=== PATIENT | female | born 1975 | race Caucasian/White ===

== ENCOUNTER 2024-08-20 11:05 | Outpatient (AMB) | payer MEDICARE, MEDICAID, SELFPAY ==
--- NOTE | 2024-08-20 11:10 | A.OFFVIS_ITS ---
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 She initially sustained a right hip injury last September that revealed labrum tears upon MRI investigation at [facility]. The most recent aggravation was a fall at her drive way at home about 3 months ago, which has been correlated with continuous, intense pain described as stabbing and pulling, with radiation to the midline buttock and sacrum extending nursing home down posterior thighs. The back pain does not extend below the knee level and has led to considerable interference with functional daily movements, especially sitting and bending and sleep. Her medical history is notable for ankylosing spondylitis, for which she receives ongoing treatment, differentiating this current pain episode from her chronic illness. A history of L2 and L4 compression fracture and degenerative changes was noted, with recent imaging confirming absence of significant stenosis or nerve root impingements. The patient?s pain has persisted despite lack of immediate remedial interventions; exacerbated symptoms are aligned with periods of immobility, transitions, and specific movements. The patient has faced insurance hurdles sincerely limiting follow-up diagnostics and has restricted herself from NSAID use due to ulcerative colitis and liver enzyme elevation, posing further challenges in effective pain management and lifestyle maintenance, indicated by a delayed commencement of physical therapy and disrupted daily routines and sleep. - Onset and Timing: Chronic, persistent since last September with recent exacerbation three months ago. - Quality and Character: Stabbing, tugging, pulling, tight, squeezing, tearing, dull, aching, heavy. - Primary Location: Lower back into the midline buttock. - Areas of Radiation: Extends nursing home down the leg, not beyond knee level. - Exacerbating Factors: Sitting, transitioning from sitting to standing, bending forward. - Relieving Factors: Temporary relief from hip cortisone shots. - Interference with Function: Difficulty standing, impaired sleep, limitations on movement, significant functional daily impairments. - Affect: The patient's mood and activities are significantly impacted by chronic pain, which affects sleep and quality of life. - Analgesia: Currently on Remicade for ankylosing spondylitis yet perceives current pain as unrelated. No oral analgesics noted due to ulcerative colitis and liver condition. - Adverse Effects: Cannot take ibuprofen due to ulcerative colitis. - Activities of Daily Living: Severely impacted, with sitting, bending, and daily functional tasks complicated by chronic pain. - Aberrant Drug-Related Behaviors: None reported; the patient avoids pain medications due to ulcerative colitis. Oswestry Low Back Pain Disability Score=36 [facility] Medical History (Updated 08/20/24 @ 14:21 by MARK Valle) Labral tear of right hip joint Ulcerative colitis SURINDER (generalized anxiety disorder) Hyperlipidemia PTSD (post-traumatic stress disorder) Ankylosing spondylitis ADHD Lumbar radiculopathy Lumbar compression fracture Lumbar degenerative disc disease Surgical History (Updated 08/20/24 @ 11:43 by Barbara Mensah) History of surgery of uterus H/O shoulder surgery H/O knee surgery H/O breast augmentation Review of Systems Const Details: - Musculoskeletal: Reports chronic back pain exacerbated by sitting or bending; denies peripheral numbness or tingling except dull hip pain on lateral side bilaterally. - Gastrointestinal: Denies alcohol consumption; reports ulcerative colitis and newly recognized liver disease. - General: Claims overall life quality diminished due to persistent pain. All systems reviewed & are unremarkable except as noted in HPI and below Physical Exam Vital Signs: Last Vital Signs Pulse Ox 99 08/20/24 11:16 Oxygen Delivery Method Room Air 08/20/24 11:16 BMI result Body Mass Index 27.1 General: Appears afebrile. Acute distress due to lower back and sacral pain. Alert and oriented. Mood and affect appropriate. Follows and participates in conversation appropriately. Respiratory effort is unlabored. No cough. Able to transition from sit to stand unassisted. Ambulates with bilaterally normal heel strike and toe off. General: Yes no CVA tenderness Back/Spine/Pelvis Other: Patient is able to walk and stand on heels and tip toes with some difficulties due to pain otherwise demonstrating good motor tone. Mildly antalgic gait, no limping. Lumbar ROM are limited due to pain, flexion and extension and bending reproduce moderate to severe pain. Patient is frequently adjusting her positioning during today's visit and tries to offload pressure from sitting on hard surfaces. Sitting over 1-2 min increases her pain. Demonstrates 5/5 left and 4/5 right strength of quadriceps bilaterally as well as flexion/dorsiflexion of bilateral feet against resistance. 2+ pedal pulses bilaterally. Straight leg rise with dorsiflexion negative bilaterally. +2 patellar and achilles reflexes bilaterally. Facet loading test positive bilaterally. Leticia sign, Demetrius?s, Gaenslen, Pelvic compression and Stinchfield tests are positive bilaterally. Mild to moderate right groin pain with I/E hip rotations. Significant paraspinals tenderness lower back and sacral areas. Valsalva maneuver negative. Back: no CVA tenderness Cervical Spine: cervical ROM normal, cervical muscular tenderness and No Cervical spine tenderness Thoracic/Lumbar Spine: thoracic and lumbar spine normal to inspection, No Thoracic/lumbar spine scar(s), Lasegue's sign negative, straight leg raise negative bilaterally, pain with thoraco-lumbar ROM, paraspinal muscle tenderness, thoraco-lumbar ROM limited, No thoracic spinal tenderness and lumbar spinal tenderness (L4-S1) Pelvis: buttock tenderness bilaterally and no sciatic notch tenderness Sacroiliac joints: bilaterally tender to palpation Sacrum: no ecchymosis, no swelling and tenderness midline and bilaterally Coccyx: no tenderness Results Reviewed Results Reviewed: Assessment & Plan Assessment & Plan (1) Lumbar degenerative disc disease: Code(s): M51.369 - Other intervertebral disc degeneration, lumbar region without mention of lumbar back pain or lower extremity pain Category: Medical (2) Coccydynia: Code(s): M53.3 - Sacrococcygeal disorders, not elsewhere classified Category: Medical (3) History of recent fall: Code(s): Z91.81 - History of falling Category: Medical (4) Sacroiliac joint pain: Code(s): M53.3 - Sacrococcygeal disorders, not elsewhere classified Category: Medical (5) Low back pain: Code(s): M54.50 - Low back pain, unspecified Category: Medical (6) Tarlov cyst: Comment: Right sacrum per lumbar MRI 08/10/24 at [facility] [facility] Code(s): G96.191 - Perineural cyst Category: Medical (7) Lumbosacral spondylosis: Code(s): M47.817 - Spondylosis without myelopathy or radiculopathy, lumbosacral region Category: Medical Plan I plan to perform X-ray imaging of the pelvis, sacrum and coccyx to rule out any degenerative changes, fractures or dislocations secondary to her recent fall. We reviewed spine MRI reports from [facility] [place] [facility]. Given her history of compression fractures, we reviewed potential osteoporosis risks before any steroid interventions. Patient reports her density bone scan of last year was normal. Patient will begin physical therapy focused on her hip and lower back and adjusting any further movement techniques. If further diagnostics confirm conditions amenable to treatment, interventional options such as radiofrequency ablation and neuromodulation will be considered. All diagnostic findings will guide ongoing pain management strategies, balancing symptomatic relief with safety. All questions and concerns have been answered and patient agreed with the plan. Follow up for xray results and sooner as needed. Patient was informed and verbally consented to the use of an ambient scribe for clinic note documentation during this visit. Orders: Orders 2 XR pelvis min 3V Today M53.3 - Sacrococcygeal disorders, not elsewhere classified, Z91.81 - History of falling XR sacrum coccyx min 2V Today M53.3 - Sacrococcygeal disorders, not elsewhere classified Patient Instructions: I discussed the likelihood of mechanical low back pain influenced by recent physical injuries compounded by her ankylosing spondylitis and recent known history of right hip labral tear. Treatment options vary from physical therapy initiation to potential interventional procedures like diagnostic nerve blocks for potential neuromodulation or radiofrequency ablation if indicated by further imaging. It was emphasized that steroid injections would be cautiously considered given previous history of mild L2 and L4 compression fractures. I informed the patient of the inherent risks, benefits, and non-surgical alternatives considering her medical history. Agreement was given to commence with imaging studies, proceed robustly with therapeutic strategies, and engage in a discussion regarding future management steps based on further test outcomes. The necessity of a coordinated care pathway to facilitate insurance alignment and imaging accessibility was underscored. - Proceed to hospital imaging for pelvis, sacrum and coccyx X-rays today. - Start physical therapy next week as planned focusing on guided exercises specific to hip and back stabilization. - Continue monitoring symptoms and maintain a record for follow-up. - Await imaging results to discuss next steps in treatment. - Stay active within limits and avoid exacerbating movements. - Consult medical release for further hip imaging and reports from [facility]. Coding Level of Care Code New Pt Level 4 (89856) Diagnoses Lumbar degenerative disc disease M51.369 Coccydynia M53.3 History of recent fall Z91.81 Sacroiliac joint pain M53.3 Low back pain M54.50 Tarlov cyst G96.191 Lumbosacral spondylosis M47.817
[2024-08-20 11:16] VITALS: O2SAT 99; BMI 27.1
--- OUTSIDE RECORDS SUMMARY | 2024-08-20 13:25 | XMS_ITS | Clinical Summary ---
Author Organization Patient Business Ser [facility] Address [address] [place] [address] Care Team Providers Care Resident Services Director Name Role Phone Liv Villalba MD Primary Care Provider [phone] Allergies Active Allergy Reactions Criticality Noted Date Comments Avocado 08/03/2021 Lidocaine 11/16/2020 Other Reaction(s): OTHER Metronidazole 08/03/2021 Other Reaction(s): Rash/Dermatitis Oxycodone Hallucinations Medium 06/01/2021 Oxycodone-Acetaminophen 08/03/2021 Medications amphetamine-de xtroamphetamin e XR (ADDERALL XR) 20 mg 24 hr capsule Take 20 mg by mouth every morning. 2 tablets in the morning Active spironolactone (ALDACTONE) 100 mg tablet Take 1 Tab by mouth daily 12/01/19 18 Active baclofen (LIORESAL) 10 mg tablet Take 1 tablet (10 mg total) by mouth 3 (three) times a day if needed. 07/03/19 25 Active clonazePAM (KlonoPIN) 1 mg tablet Take 1.5 mg by mouth 1 (one) time each day. Max Daily Amount: 1.5 mg 07/25/19 25 Active Rinvoq 45 mg tablet extended release 24 hr Take 1 tablet by mouth 1 (one) time each day. 08/11/19 25 Active cyclobenzaprin e HCl (FLEXERIL ORAL) Take 3 tablets by mouth as needed. Taking 2 tablets weekly 025 Discontinued infliximab (REMICADE IV) Inject 700 mg into the vein. Every 4 weeks 025 Discontinued LORazepam (ATIVAN) 1 mg tablet Take 1 mg by mouth at bedtime. 2 tablets nightly to sleep 025 Discontinued omeprazole (PriLOSEC) [address] capsule Take 10 mg by mouth 2 times daily. 025 Discontinued chlorhexidine (HIBICLENS) 4 % external liquid Preop surgical skin wash. Please follow provided instructions from doctor. 06/01/19 025 Discontinued Active Problems Problem Noted Date Diagnosed Date Abnormal uterine bleeding 06/06/2021 Dysplasia of cervix, high grade JESSICA 2 06/06/2021 Encounters Date Type Department Care Team Description 08/14/2024 1:30 PM EDT Office Visit [facility] Hematology Oncology [address] [place] [address] Elissa Post MD Coagulopathy (CMS/HCC) (Primary Dx); Purpura (CMS/HCC) 08/12/2024 Telephone Gastroenterology - [place] [address] [facility] [address] [facility] [address] [place] [address] Destiny Li MD APPOINTMENT from Last 3 Months Surgical History Surgery Date Site/Laterality Comments OTHER SURGICAL HISTORY 02/26/2021 PROCEDURE: FL CONIZATION CERVIX W/WO D&C RPR KNIFE/LASER; COMMENT: CKC of cervix. OTHER SURGICAL HISTORY 09/08/2020 PROCEDURE: FL INSERTION INTRAUTERINE DEVICE IUD; COMMENT: Hysteroscopy, IUD insertion OTHER SURGICAL HISTORY 06/21/2021 PROCEDURE: FL LAPS TOTAL HYSTERECT 250 GM/< W/RMVL TUBE/OVARY; COMMENT: Robot assisted total laparoscopic hysterectomy, bilateral salpingectomy, lysis of adhesions. Medical History Medical History Date Comments Ulcerative colitis DX:Ulcerative colitis ([facility]); COMMENT: Remicade every 4 weeks GERD (gastroesophageal reflux disease) DX:GERD (gastroesophageal reflux disease) Ankylosing spondylitis DX:Ankylo sing spondylitis ([facility]); COMMENT: Dr. Floyd on Imaging and HLA B27 positve. ADHD (attention deficit hype ractivity disorder) DX:ADHD (attention deficit h yperactivity disorder) Anxiety and depression DX:Anxiet y and depression Thyroid nodule DX:Thyroid nodul e Pulmonary nodule DX:Pulmonary no dule; COMMENT: CT Chest 09/24/20: Stable small pulmonary nodule at the right lung base, which requires no further follow-up per Fleischner recommendations. Family History Medical History Relation Name Comments Prostate cancer Father Leukemia Mother Breast cancer Paternal Grandmother Relation Name Status Comments Father Mother Paternal Grandmother Social History Tobacco Use Types Packs/Day Years Used Date Smoking Tobacco: Never Smokeless Tobacco: Never Alcohol Use Standard Drinks/Week Comments No 0 (1 standard drink = 0.6 oz pur e alcohol) Comments Unknown Sex and Gender Information Value Date Recorded Sex Assigned at Female 07/08/2024 3:37 PM EST Legal Sex Female 1:38 AM EST Gender Identity Female 07/08/2024 3:37 PM EST Sexual Orientation Not on file Obstetrics History Last Filed Vital Signs Vital Sign Reading Time Taken Comments Blood Pressure 126/89 08/14/2024 1:42 PM EDT Pulse 120 08/03/2021 2:21 PM EDT Temperature 37.2 ??C (99 ??F) 08/14/2024 1:42 PM EDT Respiratory Rate - - Oxygen Saturation 100% 08/14/2024 1:42 PM EDT Inhaled Oxygen Concentration - - Weight 69.4 kg (153 lb) 08/14/2024 1:42 PM EDT Height 157.5 cm (5' 2 ) 08/14/2024 1:42 PM EDT Body Mass Index 27.98 08/14/2024 1:42 PM EDT Plan of Treatment Upcoming Encounters Date Type Department Care Team (Late st Contact Info) Description 09/02/2024 1:40 PM EDT Consult Gastroenterology - [place] [address] [facility] [address] [facility] [address] [place] [phone] Kevyn Luevano, PA [address] [facility] [address] [place] [address] 09/11/2024 1:15 PM EDT Office Visit [facility] Hematology Oncology [address] [place] [phone] Elissa Post MD [address] [place] [address] Health Maintenance Due Date Last Done Comments Breast Cancer Screening 1974 COVID-19 Vaccine (#1) 1979 Hepatitis B Vaccines (1 of 3 - 19+ 3-dose series) 1993 Cervical Cancer Screening: Pap Smear 1995 Colorectal Cancer Screening: Colonoscopy 07/26/2021 Depression Screening 07/26/2021 HIV Screening 07/26/2021 Medicare Annual Wellness Visit 07/26/2021 Social Influencers of Health Screening 07/26/2021 Pneumococcal Vaccine: 50+ Years (1 of 1 - PCV) 02/11/2024 Zoster Vaccines (1 of 2) 02/11/2024 Influenza Vaccine (Season Ended) 2025 04/12/2017, 03/04/2015, 02/19/2015, Additional history exists DTaP,Tdap,and Td Vaccines (4 - Td or Tdap) 10/06/2033 10/07/2023, 12/18/2022, 11/19/2013 Hepatitis C Screening Completed 11/28/2023 HIB Vaccines Aged Out No longer eligi ble based on patient's age to complete this topic HPV Vaccines Aged Out No longer eligi ble based on patient's age to complete this topic Hepatitis A Vaccines Aged Out No long er eligible based on patient's age to complete this topic IPV Vaccines Aged Out No longer eligi ble based on patient's age to complete this topic MMR Vaccines Aged Out No longer eligi ble based on patient's age to complete this topic Meningococcal ACWY Vaccine Aged Out N o longer eligible based on patient's age to complete this topic Meningococcal B Vacine Aged Out No lo nger eligible based on patient's age to complete this topic Pneumococcal Vaccine: Pediatrics (0 to 5 Years) and At-Risk Patients (6 to 64 Years) Aged Out No longer eligible based on patient's age to complete this topic RSV Immunization Patients Under 20 months Aged Out No longer eligible based on patient's age to complete this topic Varicella Vaccines Aged Out No longer eligible based on patient's age to complete this topic Procedures Procedure Name Priority Date/Time Associated Diagnosis Comments CBC WITH AUTO DIFFERENTIAL Routine 08/14/2024 2:15 PM EDT Purpura (CMS/HCC) ACTIVATED PARTIAL THROMBOPLASTIN TIME Routine 08/14/2024 2:15 PM EDT Purpura (CMS/HCC) PROTHROMBIN TIME WITH INR Routine 08/14/2024 2:15 PM EDT Purpura (CMS/HCC) HEPATIC FUNCTION PANEL Routine 2:15 PM EDT Purpura (CMS/HCC) CBC AND DIFFERENTIAL Routine 08/14/2024 2:15 PM EDT Purpura (CMS/HCC) from Last 3 Months Results * (ABNORMAL) CBC auto differential (08/14/2024 2:15 PM EDT) Pathologist [facility] WBC 5.9 4.8 - 10.8 K/mcL LAB HEMETOLOGY METHOD 08/14/2024 4:50 PM EDT [facility] RBC 4.60 3.80 - 4.80 M/mcL LAB HEMETOLOGY METHOD 08/14/2024 4:50 PM EDT [facility] Hemoglobin 13.8 11.5 - 16.0 g/dL LAB HEMETOLOGY METHOD 08/14/2024 4:50 PM EDT [facility] Hematocrit 43.0 35.0 - 47.0 % LAB HEMETOLOGY METHOD 08/14/2024 4:50 PM EDT [facility] MCV 93.5 79.0 - 98.0 FL LAB HEMETOLOGY METHOD 08/14/2024 4:50 PM EDT [facility] MCH 30.0 27.0 - 32.0 pcg LAB HEMETOLOGY METHOD 08/14/2024 4:50 PM EDT [facility] MCHC 32.1 32.0 - 37.0 g/dL LAB HEMETOLOGY METHOD 08/14/2024 4:50 PM EDT [facility] RDW 13.6 11.0 - 15.0 % LAB HEMETOLOGY METHOD 08/14/2024 4:50 PM EDT [facility] Platelets 636(H) 130 - 400 K/mcL LAB HEMETOLOGY METHOD 08/14/2024 4:50 PM EDT [facility] MPV 8.5 7.0 - 11.0 FL LAB HEMETOLOGY METHOD 08/14/2024 4:50 PM EDT [facility] NRBC 0.0 <1.0 % LAB HEMETOLOGY METHOD 08/14/2024 4:50 PM EDT [facility] NRBC Absolute 0.00 <0.10 K/mcL LAB HEMETOLOGY METHOD 08/14/2024 4:50 PM EDT [facility] Neutrophils Relative 43.8 % LAB HEMETOLOGY METHOD 08/14/2024 4:50 PM EDT [facility] Lymphocytes Relative 44.2 % LAB HEMETOLOGY METHOD 08/14/2024 4:50 PM EDT [facility] Monocytes Relative 8.9 % LAB HEMETOLOGY METHOD 08/14/2024 4:50 PM EDT [facility] Eosinophils Relative 0.3 % LAB HEMETOLOGY METHOD 08/14/2024 4:50 PM EDT [facility] Basophils Relative 0.9 % LAB HEMETOLOGY METHOD 08/14/2024 4:50 PM EDT [facility] Immature Granulocytes Relative 1.9 % LAB HEMETOLOGY METHOD 08/14/2024 4:50 PM EDT [facility] Neutrophils Absolute 2.57 1.50 - 7.00 K/mcL LAB HEMETOLOGY METHOD 08/14/2024 4:50 PM EDT [facility] Lymphocytes Absolute 2.59 1.00 - 5.00 K/mcL LAB HEMETOLOGY METHOD 08/14/2024 4:50 PM EDT [facility] Monocytes Absolute 0.52 0.20 - 1.00 K/mcL LAB HEMETOLOGY METHOD 08/14/2024 4:50 PM EDT [facility] Eosinophils Absolute 0.02 0.00 - 0.50 K/mcL LAB HEMETOLOGY METHOD 08/14/2024 4:50 PM EDT [facility] Basophils Absolute 0.05 0.00 - 0.20 K/[facility] LAB HEMETOLOGY METHOD 08/14/2024 4:50 PM EDT [facility] Immature Granulocytes Absolute 0.11(H) 0.00 - 0.03 K/[facility] LAB HEMETOLOGY METHOD 08/14/2024 4:50 PM EDT [facility] Blood Venous blood specimen / Unknown Venipuncture / Unknown 08/14/2024 2:15 PM EDT 08/14/2024 4:42 PM EDT Elissa Post MD LAB BLOOD ORDERABLES Final R esult Performing Organization Address City/[facility]/ZIP Co de Phone Number [facility] [address] [place] [address], [place] [phone] * Activated partial thromboplastin time (08/14/2024 2:15 PM EDT) aPTT 29.4 24.1 - 39.3 sec LAB COAGULATION METHOD 08/14/2024 4:55 PM EDT [facility] Blood Venous blood specimen / Unknown Venipuncture / Unknown 08/14/2024 2:15 PM EDT 08/14/2024 4:41 PM EDT Elissa Post MD LAB BLOOD ORDERABLES Final R esult [facility] [address] [place] [address], [place] [phone] * Prothrombin time with INR (08/14/2024 2:15 PM EDT) Protime 11.2 10.6 - 13.9 sec LAB COAGULATION METHOD 08/14/2024 4:55 PM EDT [facility] INR 0.9 LAB COAGULATION METHOD 08/14/2024 4:55 PM EDT [facility] Blood Venous blood specimen / Unknown Venipuncture / Unknown 08/14/2024 2:15 PM EDT 08/14/2024 4:41 PM EDT Elissa Post MD LAB BLOOD ORDERABLES Final R esult [facility] [address] [place] [address], [place] [phone] * (ABNORMAL) Hepatic function panel (08/14/2024 2:15 PM EDT) Total Protein 8.2(H) 6.0 - 8.0 g/dL LAB CHEMISTRY METHOD 08/14/2024 6:35 PM EDT [facility] Albumin 4.2 3.2 - 5.0 g/dL LAB CHEMISTRY METHOD 08/14/2024 6:35 PM EDT [facility] Total Bilirubin 0.5 0.0 - 1.4 mg/dL LAB CHEMISTRY METHOD 08/14/2024 6:35 PM T [facility] Bilirubin, Direct 0.1 0.0 - 0.3 mg/dL LAB CHEMISTRY METHOD 08/14/2024 6:35 PM EDT [facility] Bilirubin, Indirect 0.4 0.0 - 1.1 mg/dL LAB CHEMISTRY METHOD 08/14/2024 6:35 PM EDT [facility] ALT (SGPT) 79(H) 10 - 60 unit/L LAB CHEMISTRY METHOD 08/14/2024 6:35 PM EDT [facility] AST (SGOT) 85(H) 10 - 42 unit/L LAB CHEMISTRY METHOD 08/14/2024 6:35 PM EDT [facility] Alkaline Phosphatase 102 42 - 121 unit/L LAB CHEMISTRY METHOD 08/14/2024 6:35 PM EDT [facility] Blood Venous blood specimen / Unknown Venipuncture / Unknown 08/14/2024 2:15 PM EDT 08/14/2024 4:42 PM EDT Elissa Post MD LAB BLOOD ORDERABLES Final R esult [facility] [address] [place] [address], from Last 3 Months Insurance [employer] [place] - [place] [employer] Care Teams Resident Services Director Relationship Specialty Start Date End Date Liv Villalba MD [address] [facility] access [place] [address] PCP - General Internal Medicine 06/14/24
--- OUTSIDE RECORDS SUMMARY | 2024-08-20 13:25 | XMS_ITS | Encounter Summary ---
Author Organization [facility] Address [id number] [place] [id number] Care Team Providers Care Dance Costume Designer Name Role Phone Liv Villalba MD Primary Care Provider [phone] Reason for Visit * Reason Comments Consult * Consultation (Routine) - Closed Specialty Diagnoses / Procedures Referred By Contact Referred To Contact Hematology and Oncology Diagnoses Purpura (CMS/HCC) Ruddy Cooper PA [address] [place] [address] Phone: tel: fax: [facility] Hematology Oncology [address] [place] [phone] Phone: tel: fax: Referral ID Status Reason Start Date Expiration Date V isits Requested Visits Authorized [id number] Closed Specialty Services Required 07/09/2024 07/09/2025 1 1 Encounter Details Date Type Department Care Team (Late st Contact Info) Description 08/14/2024 1:30 PM EDT Office Visit [facility] Hematology Oncology [address] [place] [phone] Elissa Post MD [address] [place] [address] Coagulopathy (CMS/HCC) (Primary Dx); Purpura (CMS/HCC) Social History Tobacco Use Types Packs/Day Years [...] PM EST Sexual Orientation Not on file documented as of this encounter Last Filed Vital Signs Vital Sign [place] Time Taken Comments Blood Pressure 126/89 08/14/2024 1:42 PM EDT Pulse - - Temperature 37.2 ??C (99 ??F) 08/14/2024 1:42 PM EDT Respiratory Rate - - Oxygen Saturation 100% 08/14/2024 1:42 PM EDT Inhaled Oxygen Concentration - - Weight 69.4 kg (153 lb) 08/14/2024 1:42 PM EDT Height 157.5 cm (5' 2 ) 08/14/2024 1:42 PM EDT Body Mass Index 27.98 08/14/2024 1:42 PM EDT documented in this encounter Progress Notes * Elissa Post MD - 08/14/2024 1:30 PM EDT ONC CANCER INITIAL VISIT Dear Ruddy, Thank you very much for referring this patient for consultation. HPI: Patient is a 49-year-old female, who has multiple medical issues, has been on multiple prescription medication for a while, noticed increasing bruising and easy bleeding lately patient referred to me for further hematological evaluation. Patient apparently denies any nonsteroidal anti-infl ammatory drug use, patient also denies alcohol abuse but patient has abnormal liver function test and will be seeing a special needs librarian in next couple weeks. Patient denies any prior history any significant family history of bleeding disorder. Patient have to complete delivery, never needed RBC transfusion ROS: GENERAL: No anorexia, intentional weight loss, fever, chills, night sweats but get fatigue and tired easily HEENT occasional headache, no visual symptom NECK: No lumps, goiter, pain or significant neck swelling RESPIRATORY: No significant cough or shortness of breath CARDIOVASCULAR: No chest pressure GI: No significant abdominal discomfort, blood in stools or black stools MUSCULOSKELETAL: Has chronic arthritic pain especially the backache because of her rheumatological issues she had hysterectomy denies any symptoms HEMATOLOGY/LYMPHOLOGY lately she has been noticing easy bleeding and easy bruising Other Systems review is non contributory PAST MEDICAL HISTORY: GERD Asthma Anxiety disorder ADHD Hypertension Dyslipidemia Ankylosing spondylitis Asherman syndrome Headaches Anemia Ulcerative colitis Lung mass PAST SURGICAL HISTORY: Past Surgical History: Procedure Laterality Date OTHER SURGICAL HISTORY 02/26/2021 PROCEDURE: CT CONIZATION CERVIX W/WO D&C RPR KNIFE/LASER; COMMENT: CKC of cervix. OTHER SURGICAL HISTORY 09/08/2020 PROCEDURE: CT INSERTION INTRAUTERINE DEVICE IUD; COMMENT: Hysteroscopy, IUD insertion OTHER SURGICAL HISTORY 06/21/2021 PROCEDURE: CT LAPS TOTAL HYSTERECT 250 GM/< W/RMVL TUBE/OVARY; COMMENT: Robot assisted total laparoscopic hysterectomy, bilateral salpingectomy, lysis of adhesions. SOCIAL HISTORY: She never smoked She denies alcohol use and abuse He is She lives with her 2 sons FAMILY HISTORY: Mother had tachypnea but there is no family history of bleeding disorder MEDICATIONS: Current Outpatient Medications: amphetamine-dextroamphetamine XR (ADDERALL XR) 20 mg 24 hr capsule, Take 20 mg by mouth every morning. 2 tablets in the morning, Disp: , Rfl: baclofen (LIORESAL) 10 mg tablet, Take 1 tablet (10 mg total) by mouth 3 (three) times a day if needed., Disp: , Rfl: clonazePAM (KlonoPIN) 1 mg tablet, Take 1.5 mg by mouth 1 (one) time each day. Max Daily Amount: 1.5 mg, Disp: , Rfl: Rinvoq 45 mg tablet extended release 24 hr, Take 1 tablet by mouth 1 (one) time each day., Disp: , Rfl: spironolactone (ALDACTONE) 100 mg tablet, Take 1 Tab by mouth daily, Disp: , Rfl: Allergies Allergen Reactions Oxycodone Hallucinations Avocado Lidocaine Other Reaction(s): OTHER Metronidazole Other Reaction(s): Rash/Dermatitis Oxycodone-Acetaminophen PHYSICAL EXAM: Visit Vitals BP 126/89 (BP Location: Left arm, Patient Position: Sitting, BP Cuff Size: Adult) Temp 37.2 ??C (99 ??F) (Temporal) Ht 1.575 m (62 ) Wt 69.4 kg (153 lb) SpO2 100% BMI 27.98 kg/m?? Smoking Status Never BSA 1.71 m?? ECOG 0-1 APPEARANCE: Alert and oriented in no acute distress EYES: nonicteric sclera pink conjunctiva ORAL CAVITY: No erythema or exudates NECK: Neck supple, no significant adenopathy, HEART: normal S1 and S2 LUNG: clear to auscultation bilaterally LYMPH NODES: No palpable superficial adenopathy ABDOMEN: soft, nontender and no significant organomegaly appreciated. EXTREMITIES: Multiple ecchymosis and purpuric area on forearms as well as trunk, minimal purpuric area on the lower extremities LABS: WBC 6.8, hemoglobin 13.5 g, hematocrit 41.3% and platelet count 512 SGOT 58, SGPT 46 but total bili minimally 0.4 and alk phos only 82 BUN 25 creatinine 0.8 ASSESSMENT 1. Purpura (CMS/HCC) 2. Coagulopathy After reviewing history physical and laboratory data, I am not sure about definite etiology of her easy bruising but most likely differential diagnosis include 1. Chronic liver disease/fatty liver 2. Medications 3. Underlying coagulopathy I explained patient in detail about potential etiologies of her easy bruising and multiple purpura on her extremities and trunk, I told her that she should be evaluated by assistant professor of surgery, she has not appointment with assistant professor of surgery in next few weeks. I told her to avoid alcohol completely and also avoid NSAID completely. I will do some coagulopathy workup today and see her back in 2-3 for any further intervention. I recommend patient to take vitamin C because of deficiency of vitamin C, that can cause some time fragile skin and easy bruising etc. PLAN: I will check some coagulopathy workup today Patient to be seeing assistant professor of surgery next 1 to 2-week I will see her back in 3 to 4 weeks Elissa Post MD cc: Ruddy Cooper PA documented in this encounter Plan of Treatment Upcoming Encounters Date Type Department Care Team (Late st Contact Info) Description 09/02/2024 1:40 PM EDT Consult Gastroenterology - [place] [address] [place] [address] Kevyn Luevano PA [address] [place] [address] 09/11/2024 1:15 PM EDT Office Visit [facility] Hematology Oncology [address] [place] [phone] Elissa Post MD [address] [place] [address] Pending Results Name Type Priority Associated Diagnoses Date /Time Von Willebrand factor antigen Lab Routine Purpura ([facility]/HCC) 08/14/2024 2:15 PM EDT Factor VIII activity Lab Routine Purpura ([facility]/HCC) 08/14/2024 2:15 PM EDT Scheduled Orders Name Type Priority Associated Diagnoses Orde r Schedule Von Willebrand factor antigen Lab Routine Purpura ([facility]/HCC) 1 Occurrences starting 08/14/2024 until 08/14/2025 Factor VIII activity Lab Routine Purpura ([facility]) 1 Occurrences starting 08/14/2024 until 08/14/2025 documented as of this encounter Results * Activated partial thromboplastin time (08/14/2024 2:15 PM EDT) [facility] aPTT 29.4 24.1 - 39.3 sec LAB COAGULATION METHOD 08/14/2024 4:55 PM EDT [facility] Blood Venous blood specimen / Unknown Venipuncture / Unknown 08/14/2024 2:15 PM EDT 08/14/2024 4:41 PM EDT us Elissa Post MD LAB BLOOD ORDERABLES Final R esult [facility] [address] [place] [address], * Prothrombin time with INR (08/14/2024 2:15 PM EDT) Pathologist [facility] Protime 11.2 10.6 - 13.9 sec LAB COAGULATION METHOD 08/14/2024 4:55 PM EDT [facility] INR 0.9 LAB COAGULATION METHOD 08/14/2024 4:55 PM EDT [facility] Blood Venous blood specimen / Unknown Venipuncture / Unknown 08/14/2024 2:15 PM EDT 08/14/2024 4:41 PM EDT Elissa Post MD LAB BLOOD ORDERABLES Final R esult [facility] [address] [place] [address], * (ABNORMAL) Hepatic function panel (08/14/2024 2:15 PM EDT) Total Protein 8.2(H) 6.0 - 8.0 g/dL LAB CHEMISTRY METHOD 08/14/2024 6:35 PM EDT [facility] Albumin 4.2 3.2 - 5.0 g/dL LAB CHEMISTRY METHOD 08/14/2024 6:35 PM EDT [facility] Total Bilirubin 0.5 0.0 - 1.4 mg/dL LAB CHEMISTRY METHOD 08/14/2024 6:35 PM EDT [facility] Bilirubin, Direct 0.1 0.0 - 0.3 mg/dL LAB CHEMISTRY METHOD 08/14/2024 6:35 PM T [facility] Bilirubin, Indirect 0.4 0.0 - 1.1 mg/dL LAB CHEMISTRY METHOD 08/14/2024 6:35 PM T [facility] ALT (SGPT) 79(H) 10 - 60 unit/L LAB CHEMISTRY METHOD 08/14/2024 6:35 PM T [facility] AST (SGOT) 85(H) 10 - 42 unit/L LAB CHEMISTRY METHOD 08/14/2024 6:35 PM EDT [facility] Alkaline Phosphatase 102 42 - 121 unit/L LAB CHEMISTRY METHOD 08/14/2024 6:35 PM T [facility] Blood Venous blood specimen / Unknown Venipuncture / Unknown 08/14/2024 2:15 PM EDT 08/14/2024 4:42 PM EDT Elissa Post MD LAB BLOOD ORDERABLES Final R esult [facility] [address] [place] [address], documented in this encounter Visit Diagnoses Diagnosis Coagulopathy (CMS/HCC)- Primary Other and unspecified coagulation defects Purpura (CMS/HCC) Other nonthrombocytopenic purpuras documented in this encounter Discontinued Medications Medication Sig Discontinue Reason Start Date End Da te chlorhexidine (HIBICLENS) 4 % external liquid Preop surgical skin wash. Please follow provided instructions from doctor. 06/01/2021 08/14/2024 omeprazole (PriLOSEC) [address] capsule Take 10 mg by mouth 2 times daily. 08/14/2024 LORazepam (ATIVAN) 1 mg tablet Take 1 mg by mouth at bedtime. 2 tablets nightly to sleep 08/14/2024 infliximab (REMICADE IV) Inject 700 mg into the vein. Every 4 weeks 08/14/2024 cyclobenzaprine HCl (FLEXERIL ORAL) Take 3 tablets by mouth as needed. Taking 2 tablets weekly 08/14/2024 documented as of this encounter Historical Medications * This list may reflect changes made after this encounter. Rinvoq 45 mg tablet extended release 24 hr Take 1 tablet by mouth 1 (one) time each day. 08/10/2024 clonazePAM (KlonoPIN) 1 mg tablet Take 1.5 mg by mouth 1 (one) time each day. Max Daily Amount: 1.5 mg 07/24/2024 baclofen (LIORESAL) 10 mg tablet Take 1 tablet (10 mg total) by mouth 3 (three) times a day if needed. 07/03/2024 added in this encounter Orders Outpatient Referral Count Last Ordered Date Fir st Ordered Date AMB REFERRAL TO HEMATOLOGY / ONCOLOGY 1 documented in this encounter Care Teams Dance Costume Designer Relationship Specialty Start Date End Date Liv Villalba MD [address] [place] [address] PCP - General Internal Medicine 06/14/24 documented as of this encounter
--- OUTSIDE RECORDS SUMMARY | 2024-08-20 13:25 | XMS_ITS | Clinical Summary ---
Author Organization [facility] Address [address] [place] [address] Care Team Providers Care Smooth Plater Name Role Phone Pauline Gonzalez MD Primary Care Provider [phone] Allergies Active Allergy Reactions Criticality Noted Date Comments Avocado 08/03/2021 Lidocaine 11/16/2020 Other reaction(s): OTHER Metronidazole Rash Low 08/03/2021 Other reaction(s): Rash/Dermatitis Oxycodone-Acetaminophen 10/07/2021 Medications Medication Sig Dispensed Refills Start Date End Date Status prazosin (MINIPRESS) 1 MG capsule TAKE ONE CAPSULE BY MOUTH EVERY DAY AT BEDTIME AND 1 DURING THE DAY NEEDED FOR FLASHBACKS MAY INCREASE TO 2 CAPSULES IN 4 DAYS IF NOT EFF 0 09/28/2022 Active spironolactone (ALDACTONE) 100 MG tablet TAKE ONE TABLET BY MOUTH EVERY DAY 0 10/14/2022 Active Ozempic, 1 MG/DOSE, 4 MG/3ML SOPN INJECT 1MG SUBCUTANEOUSLY ONCE WEEKLY 0 10/19/2022 Active omeprazole (PriLOSEC) 20 MG capsule TAKE ONE CAPSULE BY MOUTH 30 MINUTES BEFORE MORNING MEAL TWICE A DAY 0 08/09/2022 Active Vyvanse 70 MG capsule Take 1 capsule (70 mg total) by mouth daily. 0 09/28/2022 Activ e amphetamine-dextro amphetamine (ADDERALL) 10 MG tablet TAKE 1/2 TABLET BY MOUTH ONCE DAILY IN THE EVENING IN ADDITION TO VYVANSE 0 10/18/2022 Active traZODone (DESYREL) 50 MG tablet TAKE 1 TO 1 AND 1/2 TABLET AT BEDTIME NEEDED FOR INSOMNIA 0 08/18/2022 Active Active Problems Problem Noted Date Diagnosed Date Chronic ulcerative rectosigmoiditis 01/26/2022 Ankylosing spondylitis 10/08/2021 Ulcerative colitis 06/05/2019 Overview: 11/03: sigmoidoscopy shows minimal changesDiagnosed by Dr. Dillon on Sigmoidoscopy with biopsy. Social History Tobacco Use Types Packs/Day Years Used Date Smoking Tobacco: Never Assessed Sex and Gender Information Value Date Recorded Sex Assigned at Female 10/14/2021 11:23 AM EDT Gender Identity Not on file Sexual Orientation Not on file Job Start Date Occupation Industry Not on file Not on file Not on file Last Filed Vital Signs Vital Sign [place] Time Taken Comments Blood Pressure 115/77 10/26/2022 11:21 AM EDT Pulse 96 10/26/2022 11:21 AM EDT Temperature 36.3 ??C (97.3 ??F) 10/26/2022 11:21 AM E DT Respiratory Rate 18 07/13/2022 1:29 PM EST Oxygen Saturation 100% 10/26/2022 11:21 AM EDT Inhaled Oxygen Concentration - - Weight 61 kg (134 lb 7.7 oz) 10/26/2022 11:21 AM EDT Height - - Body Mass Index - - Plan of Treatment Health Maintenance Due Date Last Done Comments Hepatitis B Vaccines (1 of 3 - 3-dose series) 1974 Hepatitis C Screening 1974 COVID-19 Vaccine (#1) 1974 Depression Screening 1986 Preventative Health Evaluation 02/11/1992 Cervical Cancer Screening (Pap Smear) 1995 DTap / Tdap / Td (1 - Tdap) 11/20/2013 11/19/2013, 0 11/19/2013 Colon Cancer Screening (Colonoscopy) 2019 Influenza Vaccine (#1) 2024 7, 03/04/2015, 02/19/2015, Additional history exists Breast Cancer Screening (Mammogram) 02/11/2024 Shingrix-Zoster Vaccine (1 of 2) 02/11/2024 Pneumococcal Vaccine Aged Out No long er eligible based on patient's age to complete this topic RSV Ped < 20 months Aged Out No longe r eligible based on patient's age to complete this topic Care Teams Smooth Plater Relationship Specialty Start Date End Date Pauline Gonzalez MD [address] [place] [address] PCP - General Internal Medicine 10/14/21
--- OUTSIDE RECORDS SUMMARY | 2024-08-20 13:25 | XMS_ITS | Continuity of Care Document ---
Author Organization [facility] Address [address] [place] [address] Phone [phone] Care Team Providers Care Flat Locker Name Role Phone Pauline Gonzalez M.D. Care Team Information Receive r [phone] Problems Active Problems Provider Date Thyroiditis Go Duncan M.D. Onset: Hyperlipidemia Go Duncan M.D. Onset: Attention deficit hyperactiv ity disorder, predominantly inattentive type Go Duncan M.D. Onset: 04/20/2022 Gastroesophageal reflux disease Go Duncan M.D. Onset: 04/20/2022 Chronic ulcerative rectosigmoiditis Go cunningham M.D. Onset: 04/20/2022 Solitary nodule of lung Go Duncan M.D. On set: 04/20/2022 Purpura Go Duncan M.D. Onset: Thyroid nodule Go Duncan M.D. Onset: Multinodular goiter Go Duncan M.D. Onset: 04/20/2022 Ankylosing spondylitis Go Duncan M.D. Ons et: 04/20/2022 Ulcerative colitis Go Duncan M.D. Onset: 04/20/2022 Essential hypertension Go Duncan M.D. Ons et: 04/20/2022 Malignant tumor of cervix Go Duncan M.D. Onset: 04/20/2022 Social History Type Date Description Comments Sex Unknown Lives With Sons ETOH Use Rarely consumes alcohol Tobacco Use Start: Unknown Patient has never smoked Allergies and adverse reactions Description No Known Drug Allergies Medications Active Medications SIG Qnty Indications Ordering Provider Date [id number] Solution Rec every 4 weeks Go Duncan M.D. 04/20/2022 [id number] Tablets Take once daily Pauline Gonzalez M.D. Lorazepam0.5mg Tablets Take as needed for anxiety, up to 3 times daily Unknown Trazodone [id number] Tablets Take 1/2 tablet as needed for sleep Unknown Hydroxyzine [id number] Tablets Take Three Tablets By Mouth Every DAYPauline Trinh M.D. Vital Signs Date Vital Result Comment 07/07/2022 4:06pm BP Systolic 108 mmHg BP Diastolic 72 mmHg Heart Rate 98 /min Height 62 inches 5'2 Weight 135.00 lb BMI (Body Mass Index) 24.7 kg/m2 Results Test Acquired Date Facility Test Result H/L Range N ote TSH With Reflex To FT4 05/19/2022 [facility] TSH With Reflex To FT4 <pending> Free T3 05/19/2022 [facility] Free T3 <pending> Procedures Date Code Description Status 05/18/2022 NSHOWOFF No Show Office Visit Complet ed Medical Devices Description No Information Available Encounters Type Date Location Provider Dx Diagnosis Office Visit 07/07/2022 3:45p Main Office Go Duncan M.D. E04.2 Nontoxic multinodular goiter M45.9 Ankylosing spondylit is of unspecified sites in spine K51.90 Ulcerative colitis, unspecified, without complications Assessments Date Code Description Provider 07/07/2022 E04.2 Multinodular goiter Go mitchell M.D. 07/07/2022 M45.9 Ankylosing spondylitis Go Duncan M.D. 07/07/2022 K51.90 Ulcerative colitis Go dobson M.D. Plan of Treatment No Information Available Functional Status Description No Information Available Mental Status Description No Information Available Referrals Description No Information Available
== END 2024-08-20 11:54 | disposition home or self-care (01) ==
LOC: HO.PMC 11:08
PROVIDERS: PCP Physician Assistant Medical; Referring Provider Physician Assistant Medical; Visit Provider Nurse Practitioner Family
DX: M51.369 Other intervertebral disc degeneration, lumbar region without mention of lumbar back pain or lower extremity pain (principal); M53.3 Sacrococcygeal disorders, not elsewhere classified; Z91.81 History of falling; M54.50 Low back pain, unspecified; G96.191 Perineural cyst; M47.817 Spondylosis without myelopathy or radiculopathy, lumbosacral region
CPT/HCPCS: 99204

== ENCOUNTER 2024-08-20 11:05 | Outpatient (REF) | payer MEDICARE, MEDICAID, SELFPAY ==
--- NOTE | ~2024-08-20 | XR_ITS ---
EXAMINATION: XR SACRUM AND COCCYX CLINICAL INFORMATION: M53.3 - Sacrococcygeal disorders, not elsewhere classified COMPARISON: None available. TECHNIQUE: 2 views of the sacrum and 2 views of the coccyx were obtained. FINDINGS: No acute cortical disruption. No gross malalignment. Mild sclerosis and the inferior sacroiliac joints bilaterally. No lytic or blastic lesions. XR/XR sacrum coccyx min 2V IMPRESSION: No acute fracture. Electronically signed by: Shay Ricci MD 08/21/2024 08:44 AM EDT
--- NOTE | ~2024-08-20 | XR_ITS ---
CLINICAL HISTORY: M53.3 - Sacrococcygeal disorders, not elsewhere classified Single pelvic radiograph Comparison: None Findings: Normal alignment without acute fracture. No radiopaque foreign bod Severe narrowing of the superior 2/3rds of the left SI joint cannot be excluded on this pelvic radiograph. If clinically indicated further evaluation with dedicated SI joint radiography would be of value. No significant hip osteoarthritis. IMPRESSION: Severe narrowing of the superior 2/3rds of the left SI joint cannot be excluded on this pelvic radiograph. If clinically indicated further evaluation with dedicated SI joint radiography would be of value. This document has been electronically signed by: Yadi Black MD on 08/22/2024 06:36:17
--- OUTSIDE RECORDS SUMMARY | 2024-08-20 14:31 | XMS_ITS | Clinical Summary ---
Author Organization [facility] Address [address] [place] [address] Care Team Providers Care Entry Level Civil Engineer Name Role Phone Pauline Gonzalez MD Primary Care Provider [phone] Allergies Active Allergy Reactions Criticality Noted Date [...] age to complete this topic Care Teams Entry Level Civil Engineer Relationship Specialty Start Date End Date Pauline Gonzalez MD [address] [place] [address] PCP - General Internal Medicine 10/14/21
--- OUTSIDE RECORDS SUMMARY | 2024-08-20 14:31 | XMS_ITS | Clinical Summary ---
Author Organization Patient Business [facility] [place][note 2] Address [address] [place] [address] Care Team Providers Care Application Administrator Name Role Phone Liv Villalba MD Primary Care Provider [phone] Allergies Active Allergy Reactions Criticality Noted Date [...] Description 08/14/2024 1:30 PM EDT Office Visit [facility] Hematology Oncology [address] [place] [address] Elissa Post MD Coagulopathy (CMS/HCC) (Primary Dx); Purpura (CMS/HCC) 08/12/2024 Telephone Gastroenterology - [place] [address] [facility] [address] [address] [place] [address] Destiny Li MD APPOINTMENT from Last 3 Months Surgical History Surgery Date Site/Laterality Comments OTHER SURGICAL HISTORY 02/26/2021 PROCEDURE: NE CONIZATION CERVIX W/WO D&C RPR KNIFE/LASER; COMMENT: CKC of cervix. OTHER SURGICAL HISTORY 09/08/2020 PROCEDURE: NE INSERTION INTRAUTERINE DEVICE IUD; COMMENT: Hysteroscopy, IUD insertion OTHER SURGICAL HISTORY 06/21/2021 PROCEDURE: NE LAPS TOTAL HYSTERECT 250 GM/< W/RMVL TUBE/OVARY; COMMENT: Robot assisted total laparoscopic hysterectomy, bilateral salpingectomy, lysis of adhesions. Medical History Medical History Date Comments Ulcerative colitis DX:Ulcerative colitis ([facility]); COMMENT: Remicade every 4 weeks GERD (gastroesophageal reflux disease) DX:GERD (gastroesophageal reflux disease) Ankylosing spondylitis DX:Ankylo sing spondylitis ([facility]); COMMENT: Dr. Floyd on Imaging and HLA [...] 09/02/2024 1:40 PM EDT Consult Gastroenterology - [place] [address] [facility] [address] [facility] [address] [place] [phone] Kevyn Luevano, PA [address] [facility] [address] [place] [address] 09/11/2024 1:15 PM EDT Office Visit [facility] Hematology Oncology [address] [place] [phone] Elissa Post MD [address] [place] [address] Health Maintenance Due Date Last Done Comments [...] auto differential (08/14/2024 2:15 PM EDT) Pathologist [facility] WBC 5.9 4.8 - 10.8 K/mcL LAB HEMETOLOGY METHOD 08/14/2024 4:50 PM EDT [facility] RBC 4.60 3.80 - 4.80 M/mcL LAB HEMETOLOGY METHOD 08/14/2024 4:50 PM EDT [facility] Hemoglobin 13.8 11.5 - 16.0 g/dL LAB HEMETOLOGY METHOD 08/14/2024 4:50 PM EDT [facility] Hematocrit 43.0 35.0 - 47.0 % LAB HEMETOLOGY METHOD 08/14/2024 4:50 PM EDT [facility] MCV 93.5 79.0 - 98.0 FL LAB HEMETOLOGY METHOD 08/14/2024 4:50 PM EDT [facility] MCH 30.0 27.0 - 32.0 pcg LAB HEMETOLOGY METHOD 08/14/2024 4:50 PM EDT [facility] MCHC 32.1 32.0 - 37.0 g/dL LAB HEMETOLOGY METHOD 08/14/2024 4:50 PM EDT [facility] RDW 13.6 11.0 - 15.0 % LAB HEMETOLOGY METHOD 08/14/2024 4:50 PM EDT [facility] Platelets 636(H) 130 - 400 K/mcL LAB HEMETOLOGY METHOD 08/14/2024 4:50 PM EDT [facility] MPV 8.5 7.0 - 11.0 FL LAB HEMETOLOGY METHOD 08/14/2024 4:50 PM EDT [facility] NRBC 0.0 <1.0 % LAB HEMETOLOGY METHOD 08/14/2024 4:50 PM EDT [facility] NRBC Absolute 0.00 <0.10 K/mcL LAB HEMETOLOGY METHOD 08/14/2024 4:50 PM EDT [facility] Neutrophils Relative 43.8 % LAB HEMETOLOGY METHOD 08/14/2024 4:50 PM EDT [facility] Lymphocytes Relative 44.2 % LAB HEMETOLOGY METHOD 08/14/2024 4:50 PM EDT [facility] Monocytes Relative 8.9 % LAB HEMETOLOGY METHOD 08/14/2024 4:50 PM EDT [facility] Eosinophils Relative 0.3 % LAB HEMETOLOGY METHOD 08/14/2024 4:50 PM EDT [facility] Basophils Relative 0.9 % LAB HEMETOLOGY METHOD 08/14/2024 4:50 PM EDT [facility] Immature Granulocytes Relative 1.9 % LAB HEMETOLOGY METHOD 08/14/2024 4:50 PM EDT [facility] Neutrophils Absolute 2.57 1.50 - 7.00 K/mcL LAB HEMETOLOGY METHOD 08/14/2024 4:50 PM EDT [facility] Lymphocytes Absolute 2.59 1.00 - 5.00 K/mcL LAB HEMETOLOGY METHOD 08/14/2024 4:50 PM EDT [facility] Monocytes Absolute 0.52 0.20 - 1.00 K/mcL LAB HEMETOLOGY METHOD 08/14/2024 4:50 PM EDT [facility] Eosinophils Absolute 0.02 0.00 - 0.50 K/mcL LAB HEMETOLOGY METHOD 08/14/2024 4:50 PM EDT [facility] Basophils Absolute 0.05 0.00 - 0.20 K/[facility] LAB HEMETOLOGY METHOD 08/14/2024 4:50 PM EDT [facility] Immature Granulocytes Absolute 0.11(H) 0.00 - 0.03 K/[facility] LAB HEMETOLOGY METHOD 08/14/2024 4:50 PM EDT [facility] Blood Venous blood specimen / Unknown Venipuncture / Unknown 08/14/2024 2:15 PM EDT 08/14/2024 4:42 PM EDT Elissa Post MD LAB BLOOD ORDERABLES Final R esult Performing Organization Address City/[facility]/ZIP Co de Phone Number [facility] [address] [place] [address], [place] [phone] * Activated partial thromboplastin time (08/14/2024 2:15 PM EDT) aPTT 29.4 24.1 - 39.3 sec LAB COAGULATION METHOD 08/14/2024 4:55 PM EDT [facility] Blood Venous blood specimen / Unknown Venipuncture / Unknown 08/14/2024 2:15 PM EDT 08/14/2024 4:41 PM EDT Elissa Post MD LAB BLOOD ORDERABLES Final R esult [facility] [address] [place] [address], [place] [phone] * Prothrombin time with INR (08/14/2024 2:15 PM EDT) Protime 11.2 10.6 - 13.9 sec LAB COAGULATION METHOD 08/14/2024 4:55 PM EDT [facility] INR 0.9 LAB COAGULATION METHOD 08/14/2024 4:55 PM EDT [facility] Blood Venous blood specimen / Unknown Venipuncture / Unknown 08/14/2024 2:15 PM EDT 08/14/2024 4:41 PM EDT Elissa Post MD LAB BLOOD ORDERABLES Final R esult [facility] [address] [place] [address], [place] [phone] * (ABNORMAL) Hepatic function panel (08/14/2024 2:15 PM EDT) Total Protein 8.2(H) 6.0 - 8.0 g/dL LAB CHEMISTRY METHOD 08/14/2024 6:35 PM EDT [facility] Albumin 4.2 3.2 - 5.0 g/dL LAB CHEMISTRY METHOD 08/14/2024 6:35 PM EDT [facility] Total Bilirubin 0.5 0.0 - 1.4 mg/dL LAB CHEMISTRY METHOD 08/14/2024 6:35 PM T [facility] Bilirubin, Direct 0.1 0.0 - 0.3 mg/dL LAB CHEMISTRY METHOD 08/14/2024 6:35 PM EDT [facility] Bilirubin, Indirect 0.4 0.0 - 1.1 mg/dL LAB CHEMISTRY METHOD 08/14/2024 6:35 PM EDT [facility] ALT (SGPT) 79(H) 10 - 60 unit/L LAB CHEMISTRY METHOD 08/14/2024 6:35 PM EDT [facility] AST (SGOT) 85(H) 10 - 42 unit/L LAB CHEMISTRY METHOD 08/14/2024 6:35 PM EDT [facility] Alkaline Phosphatase 102 42 - 121 unit/L LAB CHEMISTRY METHOD 08/14/2024 6:35 PM EDT [facility] Blood Venous blood specimen / Unknown Venipuncture / Unknown 08/14/2024 2:15 PM EDT 08/14/2024 4:42 PM EDT Elissa Post MD LAB BLOOD ORDERABLES Final R esult [facility] [address] [place] [address], from Last 3 Months Insurance [employer] [place] [employer] [place]ICA[place] [employer] [employer] Care Teams Application Administrator Relationship Specialty Start Date End Date Liv Villalba MD [address] [facility] [place] [address] PCP - General Internal Medicine 06/14/24
--- OUTSIDE RECORDS SUMMARY | 2024-08-20 14:31 | XMS_ITS | Continuity of Care Document ---
Author Organization [facility] Address [address] [place] [address] Phone [phone] Care Team Providers Care Staff Nurse Icu Resource Team Name Role Phone Pauline Gonzalez M.D. Care Team Information Receive r [phone] Problems Active Problems Provider Date Thyroiditis Go Duncan M.D. Onset: Hyperlipidemia Go Dnucan M.D. Onset: Attention deficit hyperactiv ity disorder, [...] Medications SIG Qnty Indications Ordering Provider Date [id number] Solution Rec every 4 weeks Go Duncan M.D. 04/20/2022 [id number] Tablets Take once daily Pauline Gonzalez M.D. Lorazepam0.5mg Tablets Take as needed for anxiety, up to 3 times daily Unknown Trazodone [id number] Tablets Take 1/2 tablet as needed for sleep Unknown Hydroxyzine KUJ87if Tablets Take Three Tablets By Mouth Every DAYPauline Trinh M.D. Vital Signs Date Vital Result Comment 07/07/2022 4:06pm BP Systolic 108 mmHg BP Diastolic 72 mmHg Heart Rate 98 /min Height 62 inches 5'2 Weight 135.00 lb BMI (Body Mass Index) 24.7 kg/m2 Results Test Acquired Date Facility Test Result H/L Range N ote TSH With Reflex To FT4 05/19/2022 [facility] TSH With Reflex To FT4 <pending> Free T3 05/19/2022 [facility] Free T3 <pending> Procedures [...]
--- OUTSIDE RECORDS SUMMARY | 2024-08-20 14:31 | XMS_ITS | Encounter Summary ---
Author Organization [facility] Address [address] [place] [phone] Care Team Providers Care Journeyman Mechanic Name Role Phone Liv Villalba MD Primary Care Provider [phone] Reason for Visit * Reason Comments Consult * Consultation (Routine) - Closed Specialty Diagnoses / Procedures Referred By Contact Referred To Contact Hematology and Oncology Diagnoses Purpura (CMS/HCC) Ruddy Cooper PA [address] [place] [address] Phone: tel: fax: [facility] Hematology Oncology [address] [place] [phone] Phone: tel: fax: Referral ID Status Reason Start Date Expiration Date V isits Requested Visits Authorized [id number] Closed Specialty Services Required 07/09/2024 07/09/2025 1 1 Encounter Details Date Type Department Care Team (Late st Contact Info) Description 08/14/2024 1:30 PM EDT Office Visit [facility] Hematology Oncology [address] [place] [phone] Elissa Post MD [address] [place] [address] Coagulopathy (CMS/HCC) (Primary Dx); Purpura (CMS/HCC) Social [...] function test and will be seeing a general surgery physician assistant in next couple weeks. Patient denies any [...] Laterality Date OTHER SURGICAL HISTORY 02/26/2021 PROCEDURE: MI CONIZATION CERVIX W/WO D&C RPR KNIFE/LASER; COMMENT: CKC of cervix. OTHER SURGICAL HISTORY 09/08/2020 PROCEDURE: MI INSERTION INTRAUTERINE DEVICE IUD; COMMENT: Hysteroscopy, IUD insertion OTHER SURGICAL HISTORY 06/21/2021 PROCEDURE: MI LAPS TOTAL HYSTERECT 250 GM/< W/RMVL TUBE/OVARY; [...] her that she should be evaluated by dairy chemist, she has not appointment with dairy chemist in next few weeks. I told her [...] coagulopathy workup today Patient to be seeing dairy chemist next 1 to 2-week I will see her back in 3 to 4 weeks Elissa Post MD cc: Ruddy Cooper PA documented in this encounter Plan of Treatment Upcoming Encounters Date Type Department Care Team (Late st Contact Info) Description 09/02/2024 1:40 PM EDT Consult Gastroenterology - [place] [address] [place] [address] Kevyn Luevano PA [address] [place] [address] 09/11/2024 1:15 PM EDT Office Visit [facility] Hematology Oncology [address] [place] [phone] Elissa Post MD [address] [place] [address] Pending Results Name Type Priority Associated Diagnoses Date /Time Von Willebrand factor antigen Lab Routine Purpura ([facility]/HCC) 08/14/2024 2:15 PM EDT Factor VIII activity Lab Routine Purpura ([facility]/HCC) 08/14/2024 2:15 PM EDT Scheduled Orders Name Type Priority Associated Diagnoses Orde r Schedule Von Willebrand factor antigen Lab Routine Purpura ([facility]/HCC) 1 Occurrences starting 08/14/2024 until 08/14/2025 Factor VIII activity Lab Routine Purpura ([facility]) 1 Occurrences starting 08/14/2024 until 08/14/2025 documented as of this encounter Results * Activated partial thromboplastin time (08/14/2024 2:15 PM EDT) [facility] aPTT 29.4 24.1 - 39.3 sec LAB COAGULATION METHOD 08/14/2024 4:55 PM EDT [facility] Blood Venous blood specimen / Unknown Venipuncture / Unknown 08/14/2024 2:15 PM EDT 08/14/2024 4:41 PM EDT us Elissa Post MD LAB BLOOD ORDERABLES Final R esult [facility] [address] [place] [address], * Prothrombin time with INR (08/14/2024 2:15 PM EDT) Pathologist [facility] Protime 11.2 10.6 - 13.9 sec LAB COAGULATION METHOD 08/14/2024 4:55 PM EDT [facility] INR 0.9 LAB COAGULATION METHOD 08/14/2024 4:55 PM EDT [facility] Blood Venous blood specimen / Unknown Venipuncture / Unknown 08/14/2024 2:15 PM EDT 08/14/2024 4:41 PM EDT Elissa Post MD LAB BLOOD ORDERABLES Final R esult [facility] [address] [place] [address], * (ABNORMAL) Hepatic function panel (08/14/2024 2:15 PM EDT) Total Protein 8.2(H) 6.0 - 8.0 g/dL LAB CHEMISTRY METHOD 08/14/2024 6:35 PM EDT [facility] Albumin 4.2 3.2 - 5.0 g/dL LAB CHEMISTRY METHOD 08/14/2024 6:35 PM EDT [facility] Total Bilirubin 0.5 0.0 - 1.4 mg/dL LAB CHEMISTRY METHOD 08/14/2024 6:35 PM EDT [facility] Bilirubin, Direct 0.1 0.0 - 0.3 mg/dL LAB CHEMISTRY METHOD 08/14/2024 6:35 PM T [facility] Bilirubin, Indirect 0.4 0.0 - 1.1 mg/dL LAB CHEMISTRY METHOD 08/14/2024 6:35 PM T [facility] ALT (SGPT) 79(H) 10 - 60 unit/L LAB CHEMISTRY METHOD 08/14/2024 6:35 PM T [facility] AST (SGOT) 85(H) 10 - 42 unit/L LAB CHEMISTRY METHOD 08/14/2024 6:35 PM EDT [facility] Alkaline Phosphatase 102 42 - 121 unit/L LAB CHEMISTRY METHOD 08/14/2024 6:35 PM T [facility] Blood Venous blood specimen / Unknown Venipuncture / Unknown 08/14/2024 2:15 PM EDT 08/14/2024 4:42 PM EDT Elissa Post MD LAB BLOOD ORDERABLES Final R esult [facility] [address] [place] [address], documented in this encounter Visit Diagnoses Diagnosis [...] 1 documented in this encounter Care Teams Journeyman Mechanic Relationship Specialty Start Date End Date Liv Villalba MD [address] [place] [address] PCP - General Internal Medicine 06/14/24 documented as of this encounter
== END 2024-08-20 11:06 | disposition home or self-care (01) ==
LOC: HO.XRAY 11:05
PROVIDERS: PCP Physician Assistant Medical; Referring Provider Physician Assistant Medical; Visit Provider Nurse Practitioner Family
DX: M53.3 Sacrococcygeal disorders, not elsewhere classified (principal); Z91.81 History of falling; M54.50 Low back pain, unspecified; M51.369 Other intervertebral disc degeneration, lumbar region without mention of lumbar back pain or lower extremity pain; G96.191 Perineural cyst; M47.817 Spondylosis without myelopathy or radiculopathy, lumbosacral region
CPT/HCPCS: 72190; 72220; 99202

== ENCOUNTER → 2024-08-20 12:18 | Outpatient (BNV) | payer MEDICARE, MEDICAID, SELFPAY | PROVIDERS: PCP Physician Assistant Medical; Referring Provider Physician Assistant Medical; Visit Provider Radiology Diagnostic Radiology | DX: M53.3 Sacrococcygeal disorders, not elsewhere classified (principal) | CPT/HCPCS: 72190; 72220 ==

== ENCOUNTER 2024-09-04 15:12 | Outpatient (REF) | payer MEDICARE, SELFPAY ==
--- NOTE | ~2024-09-04 | CT_ITS ---
EXAMINATION: CT PELVIS WITHOUT CONTRAST CLINICAL INFORMATION: Evaluate x-ray findings of abnormal bilateral SI joints. COMPARISON: Plain films of the sacrum and pelvis 08/20/2024. TECHNIQUE: Helical scanning was performed with submillimeter collimation through the pelvis. Sagittal and coronal multiplanar 2-D reconstructions were obtained. This CT examination was performed using dose optimization techniques as appropriate, variously including the following: *Automated exposure control *Adjustment of mA and/or kV according to patient size (this includes techniques or standardized protocols for targeted exams where dose is matched to indication/reason for exam; i.e. 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 There is no ankylosis. 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 The pelvis is intact. No fractures, or suspicious bone lesions. Normal alignment. The imaged lower lumbar spine is normal. There has been a prior hysterectomy. There are no adnexal masses. The urinary bladder images normally. A normal appendix is visualized. The imaged colon demonstrates mild diverticulosis. No wall thickening. Normal-appearing imaged small bowel. No ascites or abnormal lymph nodes present. The extrapelvic soft tissues demonstrate a small fat-containing left inguinal hernia. CT/CT pelvis wo IV con IMPRESSION: 1. 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 2. 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 3. Otherwise, no acute bony abnormalities. 4. Hysterectomy. 5. Mild colonic diverticulosis. 6. Small fat-containing left inguinal hernia. Electronically signed by: Dick Khan MD 09/04/2024 04:11 PM EDT
--- OUTSIDE RECORDS SUMMARY | 2024-09-04 17:45 | XMS_ITS | Clinical Summary ---
Author Organization Patient [facility] Address [address] [place] [address] Care Team Providers Care Clinical Program Director Name Role Phone Liv Villalba MD Primary Care Provider [phone] Allergies Active Allergy Reactions Criticality Noted Date [...] (one) time each day. 08/11/19 25 Active QUEtiapine (SEROquel) 100 mg tablet Take 1 tablet (100 mg total) by mouth 1 (one) time each day. 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, [facility] V28) 09/04/2024 Ankylosing spondylitis of mu ltiple sites in spine ([facility] V24, [facility] V28) 09/04/2024 Elevated transaminase level 09/04/2024 Abnormal uterine bleeding 06/06/2021 Dysplasia of cervix, high grade JESSICA 2 06/06/2021 Encounters Date Type Department Care Team Description 09/04/2024 11:20 AM EDT Consult Gastroenterology [facility] [address] [address] Gerry Garner MD Ulcerative rectosigmoiditis without complication ([facility] V24, [facility] V28) (Primary Dx); Ankylosing spondylitis of multiple sites in spine ([facility] V24, [facility] V28); Elevated transaminase level 08/14/2024 1:30 PM EDT Office Visit [facility] Hematology Oncology [address] [place] [address] Elissa Post MD Coagulopathy ([facility] V24) (Primary Dx); Purpura ([facility] V24) 08/12/2024 Telephone Gastroenterology [facility] 175 [facility] [address] [address] Destiny Li MD APPOINTMENT from Last 3 Months Surgical History Surgery Date Site/Laterality Comments OTHER SURGICAL HISTORY 02/26/2021 PROCEDURE: OR CONIZATION CERVIX W/WO D&C RPR KNIFE/LASER; COMMENT: CKC of cervix. OTHER SURGICAL HISTORY 09/08/2020 PROCEDURE: OR INSERTION INTRAUTERINE DEVICE IUD; COMMENT: Hysteroscopy, IUD insertion OTHER SURGICAL HISTORY 06/21/2021 PROCEDURE: OR LAPS TOTAL HYSTERECT 250 GM/< W/RMVL TUBE/OVARY; COMMENT: Robot assisted total laparoscopic hysterectomy, bilateral salpingectomy, lysis of adhesions. Medical History Medical History Date Comments Ulcerative colitis ([facility] V24, [facility] V28) DX:Ulcerative colitis (HCC); COMMENT: Remicade every 4 weeks GERD (gastroesophageal reflux disease) DX:GERD (gastroesophageal reflux disease) Ankylosing spondylitis ([facility] V24, [facility] V28) DX:Ankylosing spondylitis (H CC); COMMENT: Dr. Floyd on Imaging and HLA [...] Sign Reading Time Taken Comments Blood Pressure 124/72 09/04/2024 11:30 AM EDT Pulse 76 09/04/2024 11:30 AM EDT Temperature 37.2 ??C (99 ??F) 08/14/2024 1:42 PM EDT Respiratory Rate - - Oxygen Saturation 100% 08/14/2024 1:42 PM EDT Inhaled Oxygen Concentration - - Weight 67.6 kg (149 lb) 09/04/2024 11:30 AM EDT Height 157.5 cm (5' 2 ) 09/04/2024 11:30 AM EDT Body Mass Index 27.25 09/04/2024 11:30 AM EDT Plan of Treatment Upcoming Encounters Date Type Department Care Team (Late st Contact Info) Description 09/11/2024 1:15 PM EDT Office Visit [facility] Hematology Oncology [address] [place] [phone] Elissa Post MD [address] [place] [address] Health Maintenance Due Date Last Done Comments [...] age to complete this topic Meningococcal B Vaccine Aged Out No l onger eligible based on patient's age to complete [...] DIFFERENTIAL Routine 08/14/2024 2:15 PM EDT Purpura ([facility] V24) FACTOR 8 ACTIVITY Routine 08/14/2024 2:1 5 PM EDT Purpura ([facility] V24) VON [place]IL[place] FACTOR ANTIGEN Routine 08/14/2024 2:15 PM EDT Purpura ([facility] V24) ACTIVATED PARTIAL THROMBOPLASTIN TIME Routine 08/14/2024 2:15 PM EDT Purpura ([facility] V24) PROTHROMBIN TIME WITH INR Routine 08/14/2024 2:15 PM EDT Purpura ([facility] V24) HEPATIC FUNCTION PANEL Routine 2:15 PM EDT Purpura ([facility] V24) CBC AND DIFFERENTIAL Routine 08/14/2024 2:15 PM EDT Purpura ([facility] V24) from Last 3 Months Results * (ABNORMAL) CBC auto differential (08/14/2024 2:15 PM EDT) WBC 5.9 4.8 - 10.8 K/mcL LAB HEMETOLOGY METHOD 08/14/2024 4:50 PM EDT [facility] RBC 4.60 3.80 - 4.80 M/mcL LAB HEMETOLOGY METHOD 08/14/2024 4:50 PM EDT [facility] Hemoglobin 13.8 11.5 - 16.0 g/dL LAB HEMETOLOGY METHOD 08/14/2024 4:50 PM EDT [facility] Hematocrit 43.0 35.0 - 47.0 % LAB HEMETOLOGY METHOD 08/14/2024 4:50 PM EDT [facility] MCV 93.5 79.0 - 98.0 FL LAB HEMETOLOGY METHOD 08/14/2024 4:50 PM EDT [facility] MCH 30.0 27.0 - 32.0 pcg LAB HEMETOLOGY METHOD 08/14/2024 4:50 PM EDT [facility] MCHC 32.1 32.0 - 37.0 g/dL LAB HEMETOLOGY METHOD 08/14/2024 4:50 PM EDT [facility] RDW 13.6 11.0 - 15.0 % LAB HEMETOLOGY METHOD 08/14/2024 4:50 PM EDT [facility] Platelets 636(H) 130 - 400 K/mcL LAB HEMETOLOGY METHOD 08/14/2024 4:50 PM EDT [facility] MPV 8.5 7.0 - 11.0 FL LAB HEMETOLOGY METHOD 08/14/2024 4:50 PM EDT [facility] NRBC 0.0 <1.0 % LAB HEMETOLOGY METHOD 08/14/2024 4:50 PM EDT [facility] NRBC Absolute 0.00 <0.10 K/mcL LAB HEMETOLOGY METHOD 08/14/2024 4:50 PM EDT [facility] Neutrophils Relative 43.8 % LAB HEMETOLOGY METHOD 08/14/2024 4:50 PM EDT [facility] Lymphocytes Relative 44.2 % LAB HEMETOLOGY METHOD 08/14/2024 4:50 PM EDT [facility] Monocytes Relative 8.9 % LAB HEMETOLOGY METHOD 08/14/2024 4:50 PM EDT [facility] Eosinophils Relative 0.3 % LAB HEMETOLOGY METHOD 08/14/2024 4:50 PM EDT [facility] Basophils Relative 0.9 % LAB HEMETOLOGY METHOD 08/14/2024 4:50 PM EDT [facility] Immature Granulocytes Relative 1.9 % LAB HEMETOLOGY METHOD 08/14/2024 4:50 PM EDT [facility] Neutrophils Absolute 2.57 1.50 - 7.00 K/mcL LAB HEMETOLOGY METHOD 08/14/2024 4:50 PM EDT [facility] Lymphocytes Absolute 2.59 1.00 - 5.00 K/mcL LAB HEMETOLOGY METHOD 08/14/2024 4:50 PM EDT [facility] Monocytes Absolute 0.52 0.20 - 1.00 K/mcL LAB HEMETOLOGY METHOD 08/14/2024 4:50 PM EDT [facility] Eosinophils Absolute 0.02 0.00 - 0.50 K/mcL LAB HEMETOLOGY METHOD 08/14/2024 4:50 PM EDT [facility] Basophils Absolute 0.05 0.00 - 0.20 K/mcL LAB HEMETOLOGY METHOD 08/14/2024 4:50 PM EDT [facility] Immature Granulocytes Absolute 0.11(H) 0.00 - 0.03 K/mcL LAB HEMETOLOGY METHOD 08/14/2024 4:50 PM EDT [facility] Blood Venous blood specimen / Unknown Venipuncture / Unknown 08/14/2024 2:15 PM EDT 08/14/2024 4:42 PM EDT us Elissa Post MD LAB BLOOD ORDERABLES Final R esult [facility] [address] [place] [address], * Activated partial thromboplastin time (08/14/2024 2:15 PM EDT) aPTT 29.4 24.1 - 39.3 sec LAB COAGULATION METHOD 08/14/2024 4:55 PM EDT [facility] Blood Venous blood specimen / Unknown Venipuncture / Unknown 08/14/2024 2:15 PM EDT 08/14/2024 4:41 PM EDT us Elissa Post MD LAB BLOOD ORDERABLES Final R esult Performing Organization Address City/[facility]/ZIP Co de Phone Number [facility] [address] [place] [address], [place] [phone] * Prothrombin time with INR (08/14/2024 2:15 PM EDT) Pathologist [facility] Protime 11.2 10.6 - 13.9 sec LAB COAGULATION METHOD 08/14/2024 4:55 PM EDT [facility] INR 0.9 LAB COAGULATION METHOD 08/14/2024 4:55 PM EDT [facility] Blood Venous blood specimen / Unknown Venipuncture / Unknown 08/14/2024 2:15 PM EDT 08/14/2024 4:41 PM EDT us Elissa Post MD LAB BLOOD ORDERABLES Final R esult Performing Organization Address City/[facility]/ZIP Co de Phone Number [facility] [address] [place] [address], [place] [phone] * Von Willebrand factor antigen (08/14/2024 2:15 PM EDT) Von Willebrand Factor Antigen 137 52 - 214 % 08/20/2024 5:39 PM EDT [facility] Comment: REFERENCE INTERVAL: von Willebrand Factor, Antigen Access complete set of age- and/or gender-specific reference intervals for this test in the [employer] Laboratory Test Directory ([employer]). Performed By: [facility] [address] [place] [id number] Chief Load Dispatcher: Romel Callaway MD, PhD CLIA Number: [id number] Blood Venous blood specimen / Unknown Venipuncture / Unknown 08/14/2024 2:15 PM EDT 08/14/2024 4:42 PM EDT Elissa Post MD LAB BLOOD ORDERABLES Final R esult Performing Organization Address City/[facility] de Phone Number [facility] [address] [place] [address] * Factor VIII activity (08/14/2024 2:15 PM EDT) [facility] Factor VIII Activity 111 56 - 191 % 08/20/2024 5:39 PM EDT [facility] Comment: REFERENCE INTERVAL: Factor VIII, Activity Access complete set of age- and/or gender-specific reference intervals for this test in the [employer] Laboratory Test Directory ([employer]). Performed By: [facility] [address] [place], [place] [id number] Chief Load Dispatcher: Romel Callaway MD, PhD CLIA Number: [id number] Blood Venous blood specimen / Unknown Venipuncture / Unknown 08/14/2024 2:15 PM EDT 08/14/2024 4:42 PM EDT Elissa Post MD LAB BLOOD ORDERABLES Final R esult Performing Organization Address City/[facility] Co de Phone Number [facility] [address] [place] [address] * (ABNORMAL) Hepatic function panel (08/14/2024 2:15 PM EDT) [facility] Total Protein 8.2(H) 6.0 - 8.0 g/dL LAB CHEMISTRY METHOD 08/14/2024 6:35 PM EDT [facility] Albumin 4.2 3.2 - 5.0 g/dL LAB CHEMISTRY METHOD 08/14/2024 6:35 PM EDT [facility] Total Bilirubin 0.5 0.0 - 1.4 mg/dL LAB CHEMISTRY METHOD 08/14/2024 6:35 PM EDT [facility] Bilirubin, Direct 0.1 0.0 - 0.3 mg/dL LAB CHEMISTRY METHOD 08/14/2024 6:35 PM EDT [facility] Bilirubin, Indirect 0.4 0.0 - 1.1 mg/dL LAB CHEMISTRY METHOD 08/14/2024 6:35 PM EDT [facility] ALT (SGPT) 79(H) 10 - 60 unit/L LAB CHEMISTRY METHOD 08/14/2024 6:35 PM EDT [facility] AST (SGOT) 85(H) 10 - 42 unit/L LAB CHEMISTRY METHOD 08/14/2024 6:35 PM EDT [facility] Alkaline Phosphatase 102 42 - 121 unit/L LAB CHEMISTRY METHOD 08/14/2024 6:35 PM EDT [facility] Blood Venous blood specimen / Unknown Venipuncture / Unknown 08/14/2024 2:15 PM EDT 08/14/2024 4:42 PM EDT Elissa Post MD LAB BLOOD ORDERABLES Final R esult [facility] [address] [place] [address], from Last 3 Months Insurance [employer] [address] [place] [address] MEDICAID - [place] [facility] Care Teams Clinical Program Director Relationship Specialty Start Date End Date Liv Villalba MD [address] [place] [address] PCP - General Internal Medicine 06/14/24
--- OUTSIDE RECORDS SUMMARY | 2024-09-04 17:45 | XMS_ITS | Continuity of Care Document ---
Author Organization [facility] Address [address] [place] [address] Phone [phone] Care Team Providers Care Garage Construction Equipment Mechanic Name Role Phone Pauline Gonzalez M.D. Care Team Information Receive r [phone] Problems Active Problems Provider Date Thyroiditis Go [...] Medications SIG Qnty Indications Ordering Provider Date [id number] Solution Rec every 4 weeks Go Duncan M.D. 04/20/2022 [id number] Tablets Take once daily Pauline Gonzalez M.D. Lorazepam0.5mg Tablets Take as needed for anxiety, up to 3 times daily Unknown Trazodone [id number] Tablets Take 1/2 tablet as needed for sleep Unknown Hydroxyzine [id number] Tablets Take Three Tablets By Mouth Every DAYPauline Trinh M.D. Vital Signs Date Vital Result Comment 07/07/2022 4:06pm BP Systolic 108 mmHg BP Diastolic 72 mmHg Heart Rate 98 /min Height 62 inches 5'2 Weight 135.00 lb BMI (Body Mass Index) 24.7 kg/m2 Results Test Acquired Date Facility Test Result H/L Range N ote TSH With Reflex To FT4 05/19/2022 [facility] TSH With Reflex To FT4 <pending> Free T3 05/19/2022 [facility] Free T3 <pending> Procedures [...]
--- OUTSIDE RECORDS SUMMARY | 2024-09-04 17:45 | XMS_ITS | Encounter Summary ---
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 Would recommend colonoscopy when able; monitor LFTs off Rinvoq * Gerry Garner MD - 09/04/2024 11:20 AM EDT 49 y/o WF with left-sided UC and who had been well-conrolled on Remicade per Dr Zain Wagoner but currently on Rinvoq due to scheduling issues. Back pain worse and some bowel issues. Noted to have elevated ALT recently. Not obese. No IVDA. Neg Hepatitis labs in past. No EtOH. HLA-B27 positive.UC x 5 years. No recent bleeding. Last Flexible sigmoidoscopy about [address] abd negative. Also c/o bruising with elevated platelet count of uncertain significance. PMH reviewed ROS: neg PE: WN/WD Female NAD HEENT neg Cor and Lungs: clear' Abd; soft non-tender no mass Extr: neg Imp & Plan: Left-sided UC was better controlled with Remicade. Elevated ALT ?due to Rinvoq. Would switch back to Remicade and monitor labs. documented in this encounter Plan of Treatment Upcoming Encounters Date Type Department Care Team (Late st Contact Info) Description 09/11/2024 1:15 PM EDT Office Visit [facility] Hematology Oncology [address] [place] [phone] Elissa Post MD [address] [place] [address] documented as of this encounter Visit Diagnoses Diagnosis Ulcerative rectosigmoiditis without complication ([facility]/HCC V24, CMS/HCC V28)- Primary Ankylosing spondylitis of multiple sites in spine ([facility]/HCC V24, [facility] V28) Elevated transaminase level documented in this encounter Historical Medications * This list may reflect changes made after this encounter. QUEtiapine (SEROquel) 100 mg tablet Take 1 tablet (100 mg total) by mouth 1 (one) time each day. 08/10/2024 added in this encounter Care Teams Investment Advisor Relationship Specialty Start Date End Date Liv Villalba MD [address] [place] [address] PCP - General Internal Medicine 06/14/24 documented as of this encounter
--- OUTSIDE RECORDS SUMMARY | 2024-09-04 17:45 | XMS_ITS | Clinical Summary ---
Author Organization [facility] Address [address] [place] [address] Care Team Providers Care Gusset Ripper Name Role Phone Pauline Gonzalez MD Primary Care Provider [phone] Allergies Active Allergy Reactions Criticality Noted Date [...] age to complete this topic Care Teams Gusset Ripper Relationship Specialty Start Date End Date Pauline Gonzalez MD [address] [place] [address] PCP - General Internal Medicine 10/14/21
== END 2024-09-04 15:13 | disposition home or self-care (01) ==
LOC: HO.CT 15:12
PROVIDERS: PCP Physician Assistant Medical; Visit Provider Nurse Practitioner Family
DX: G96.191 Perineural cyst (principal); M53.3 Sacrococcygeal disorders, not elsewhere classified
CPT/HCPCS: 72192

== ENCOUNTER → 2024-09-04 15:14 | Outpatient (BNV) | payer MEDICARE, SELFPAY | PROVIDERS: PCP Physician Assistant Medical; Visit Provider Radiology Diagnostic Radiology | DX: M46.1 Sacroiliitis, not elsewhere classified (principal) | CPT/HCPCS: 72192 ==